=== PATIENT | female | born 1965 | race African-American/Black ===

== ENCOUNTER 2023-03-04 18:07 | Emergency (ER) | payer MEDICAID, OTHER ==
[~2023-03-04] VITALS: Ht 154.9 cm; Wt 80.0 kg
[2023-03-04 21:20] LABS: BASO % 0.8 % (0.0-1.0); EOS # 0.1 10^3/uL (0.0-0.5); EOS % 2.1 % (0.0-3.0); HEMATOCRIT 39.3 % (36.0-47.0); HEMOGLOBIN 12.5 g/dl (12.0-15.5); LYMPH # 1.3 10^3/uL (1.5-5.0); LYMPH % 23.8 % (24.0-44.0); MEAN CORPUSCULAR HEMOGLOBIN 28.3 pg (27.0-33.0); MEAN CORPUSCULAR HGB CONC 31.8 g/dl (32.0-36.5); MEAN CORPUSCULAR VOLUME 88.9 fl (80.0-96.0); MONO # 0.6 10^3/uL (0.0-0.8); MONO % 11.2 % (2.0-8.0); NEUTROPHILS # 3.3 10^3/uL (1.5-8.5); NEUTROPHILS % 61.7 % (36.0-66.0); PLATELET COUNT, AUTOMATED 267 10^3/uL (150-450); RED BLOOD COUNT 4.42 10^6/uL (4.00-5.40); WHITE BLOOD COUNT 5.3 10^3/uL (4.0-10.0)
[2023-03-04 21:31] LABS: INR 1.07; PROTHROMBIN TIME 13.6 SECONDS (12.5-14.5)
[2023-03-04 21:50] LABS: CPK CREATINE PHOSPHOKINASE 100 U/L (34-145)
[2023-03-04 21:51] LABS: ALBUMIN 3.8 G/DL (3.2-5.2); ALKALINE PHOSPHATASE 109 U/L (46-116); ALT/SGPT 20 U/L (7.0-40); AST/SGOT 16 U/L (<34); BILIRUBIN,DIRECT 0.2 MG/DL (<0.4); BILIRUBIN,TOTAL 0.5 MG/DL (0.3-1.2); BLOOD UREA NITROGEN 17 MG/DL (9-23); CALCIUM LEVEL 9.7 MG/DL (8.5-10.1); CARBON DIOXIDE LEVEL 27 MMOL/L (20-31); CHLORIDE LEVEL 106 MMOL/L (98-107); CREATININE FOR GFR 0.49 MG/DL (0.55-1.30); GLOMERULAR FILTRATION RATE > 60.0 (>51); GLUCOSE, FASTING 97 MG/DL (60-100); MAGNESIUM LEVEL 1.7 MG/DL (1.8-2.4); POTASSIUM SERUM 4.4 MMOL/L (3.5-5.1); SODIUM LEVEL 141 MMOL/L (136-145); TOTAL PROTEIN 7.5 G/DL (5.7-8.2)
[2023-03-04] MEDS ORDERED: NORV5TAB PO (22:33)
[2023-03-04] MEDS ORDERED: HYDR-3490 PO (22:33)
[2023-03-04 22:36] VITALS: BP 136/82; TEMP 98; O2SAT 100
[2023-03-05] MEDS ORDERED: ZOLO100T PO (00:58)
[2023-03-05] MEDS ORDERED: OMEP10CASR PO (00:58)
[2023-03-05] MEDS ORDERED: NADO20TA PO (00:58)
== END 2023-03-04 23:00 | disposition home or self-care (01) ==
LOC: M ED 18:07
DX: M17.0 Bilateral primary osteoarthritis of knee (principal); Z76.0 Encounter for issue of repeat prescription; I10 Essential (primary) hypertension

== ENCOUNTER 2023-05-18 12:25 | Emergency (ER) | payer OTHER ==
[~2023-05-18] VITALS: Ht 154.9 cm; Wt 80.5 kg
[~2023-05-18 12:25] MED LIST: HYDR-3490 PO; NADO20TA PO; NORV5TAB PO; OMEP10CASR PO; ZOLO100T PO
[2023-05-18] MEDS ORDERED: amLODIPine 5 MG TAB PO ONE (13:15)
[2023-05-18] MEDS ORDERED: HYDR-3490 PO (13:32)
[2023-05-18] MEDS ORDERED: AMLO1TAB24 PO (13:32)
[2023-05-18] MEDS ORDERED: OMEP10CASR PO (13:32)
[2023-05-18 14:33] VITALS: BP 144/83; TEMP 98; O2SAT 97
== END 2023-05-18 14:35 | disposition home or self-care (01) ==
LOC: M ED 12:25
DX: I10 Essential (primary) hypertension (principal); Z90.49 Acquired absence of other specified parts of digestive tract; Z85.3 Personal history of malignant neoplasm of breast; Z79.899 Other long term (current) drug therapy

== ENCOUNTER → 2023-06-06 | Outpatient (REF) | payer OTHER ==
[~2023-06-06] MED LIST changes: +AMLO1TAB24 PO
[2023-06-06 16:36] LABS: BASO % 0.5 % (0.0-1.0); EOS # 0.1 10^3/uL (0.0-0.5); EOS % 2.3 % (0.0-3.0); HEMATOCRIT 38.4 % (36.0-47.0); HEMOGLOBIN 12.6 g/dl (12.0-15.5); LYMPH # 1.9 10^3/uL (1.5-5.0); LYMPH % 30.5 % (24.0-44.0); MEAN CORPUSCULAR HEMOGLOBIN 28.4 pg (27.0-33.0); MEAN CORPUSCULAR HGB CONC 32.8 g/dl (32.0-36.5); MEAN CORPUSCULAR VOLUME 86.7 fl (80.0-96.0); MONO # 0.7 10^3/uL (0.0-0.8); MONO % 10.7 % (2.0-8.0); NEUTROPHILS # 3.4 10^3/uL (1.5-8.5); NEUTROPHILS % 55.7 % (36.0-66.0); PLATELET COUNT, AUTOMATED 286 10^3/uL (150-450); RED BLOOD COUNT 4.43 10^6/uL (4.00-5.40); WHITE BLOOD COUNT 6.1 10^3/uL (4.0-10.0)
[2023-06-06 17:00] LABS: ALBUMIN 3.8 G/DL (3.2-5.2); ALKALINE PHOSPHATASE 135 U/L (46-116); ALT/SGPT 40 U/L (7.0-40); AST/SGOT 47 U/L (<34); BILIRUBIN,TOTAL 0.2 MG/DL (0.3-1.2); BLOOD UREA NITROGEN 18 MG/DL (9-23); CALCIUM LEVEL 9.4 MG/DL (8.5-10.1); CARBON DIOXIDE LEVEL 32 MMOL/L (20-31); CHLORIDE LEVEL 97 MMOL/L (98-107); CHOLESTEROL LEVEL 185 MG/DL (<200); CHOLESTEROL RISK RATIO 2.98 (<5); CREATININE FOR GFR 0.64 MG/DL (0.55-1.30); GLOMERULAR FILTRATION RATE > 60.0 (>51); GLUCOSE, FASTING 100 MG/DL (60-100); HDL CHOLESTEROL 61.9 MG/DL (>40); LDL CHOLESTEROL 83.7 MG/DL (<100); MAGNESIUM LEVEL 1.6 MG/DL (1.8-2.4); NON-HDL-C 123.1 MG/DL; POTASSIUM SERUM 3.9 MMOL/L (3.5-5.1); SODIUM LEVEL 134 MMOL/L (136-145); TOTAL PROTEIN 7.7 G/DL (5.7-8.2); TRIGLYCERIDES LEVEL 197 MG/DL (<150)
[2023-06-06 17:02] LABS: HEMOGLOBIN A1c 5.6 % (4.0-6.0)
[2023-06-06 17:32] LABS: HIV 1&2 SCREEN NEGATIVE (NEGATIVE)
[2023-06-06 17:40] LABS: HEPATITIS C VIRUS ABY INDEX < 0.02 INDEX (<0.8)
== END ==
LOC: M LAB REF 16:00
PROVIDERS: ATTEND Nurse Practitioner Family
DX: E66.9 Obesity, unspecified (principal); Z11.4 Encounter for screening for human immunodeficiency virus [HIV]; Z11.59 Encounter for screening for other viral diseases

== ENCOUNTER → 2023-06-06 | Outpatient (REF) | payer OTHER | LOC: M LAB REF 15:54 | PROVIDERS: ATTEND Nurse Practitioner Family | DX: R39.9 Unspecified symptoms and signs involving the genitourinary system (principal) ==

== ENCOUNTER 2023-07-16 00:15 | Emergency (ER) | payer OTHER ==
[~2023-07-16] VITALS: Ht 154.9 cm; Wt 77.4 kg
[2023-07-16] MEDS ORDERED: TRAM50TA2 PO (04:33)
[2023-07-16] MEDS: traMADol 50 MG TAB PO ONE (04:58)
[2023-07-16 05:02] VITALS: BP 130/84; TEMP 97.7; O2SAT 97
== END 2023-07-16 05:14 | disposition home or self-care (01) ==
LOC: M ED 00:15
DX: S62.316A Displaced fracture of base of fifth metacarpal bone, right hand, initial encounter for closed fracture (principal); W19.XXXA Unspecified fall, initial encounter; Y92.410 Unspecified street and highway as the place of occurrence of the external cause; Y93.9 Activity, unspecified; Y99.9 Unspecified external cause status; I10 Essential (primary) hypertension; K21.9 Gastro-esophageal reflux disease without esophagitis; F32.A Depression, unspecified; Z79.899 Other long term (current) drug therapy

== ENCOUNTER → 2023-08-04 | Outpatient (CLI) | payer OTHER ==
[~2023-08-04] MED LIST changes: +TRAM50TA2 PO
== END ==
LOC: M SOG 13:35
PROVIDERS: ATTEND Physician Assistant
DX: S62.316A Displaced fracture of base of fifth metacarpal bone, right hand, initial encounter for closed fracture (principal); W18.30XA Fall on same level, unspecified, initial encounter; Y92.009 Unspecified place in unspecified non-institutional (private) residence as the place of occurrence of the external cause

== ENCOUNTER → 2023-08-17 | Outpatient (CLI) | payer OTHER | LOC: M WHC 10:48 | PROVIDERS: ATTEND Nurse Practitioner Family | DX: Z12.31 Encounter for screening mammogram for malignant neoplasm of breast (principal) ==

== ENCOUNTER → 2023-08-17 | Outpatient (CLI) | payer OTHER ==
[2023-08-17 16:14] LABS: HIV 1&2 SCREEN NEGATIVE (NEGATIVE)
[2023-08-17 16:21] LABS: HEPATITIS B CORE ANTIBODY IGM NEGATIVE (NEGATIVE)
[2023-08-17 16:22] LABS: HEPATITIS C VIRUS ABY INDEX < 0.02 INDEX (<0.8)
== END ==
LOC: M PLALAB 12:35
PROVIDERS: ATTEND Nurse Practitioner Family
DX: Z11.3 Encounter for screening for infections with a predominantly sexual mode of transmission (principal); Z12.4 Encounter for screening for malignant neoplasm of cervix; Z77.9 Other contact with and (suspected) exposures hazardous to health

== ENCOUNTER → 2023-09-06 | Outpatient (REF) | payer OTHER ==
[2023-09-06 19:37] LABS: ALKALINE PHOSPHATASE 127 U/L (46-116); ALT/SGPT 26 U/L (7.0-40); AST/SGOT 17 U/L (<34); BILIRUBIN,TOTAL 0.3 MG/DL (0.3-1.2); BLOOD UREA NITROGEN 26 MG/DL (9-23); CARBON DIOXIDE LEVEL 28 MMOL/L (20-31); CHLORIDE LEVEL 100 MMOL/L (98-107); CREATININE FOR GFR 0.65 MG/DL (0.55-1.30); GLOMERULAR FILTRATION RATE > 60.0 (>51); GLUCOSE, FASTING 94 MG/DL (60-100); MAGNESIUM LEVEL 1.6 MG/DL (1.8-2.4); SODIUM LEVEL 136 MMOL/L (136-145); TOTAL PROTEIN 7.4 G/DL (5.7-8.2)
== END ==
LOC: M LAB REF 16:43
PROVIDERS: ATTEND Nurse Practitioner Family
DX: E83.42 Hypomagnesemia (principal); F10.20 Alcohol dependence, uncomplicated

== ENCOUNTER → 2023-09-08 | Outpatient (CLI) | payer OTHER | LOC: M SOG 14:41 | PROVIDERS: ATTEND Physician Assistant | DX: S62.316D Displaced fracture of base of fifth metacarpal bone, right hand, subsequent encounter for fracture with routine healing (principal); Z53.9 Procedure and treatment not carried out, unspecified reason ==

== ENCOUNTER → 2023-09-08 | Outpatient (CLI) | payer OTHER | LOC: M SOG 12:55 | PROVIDERS: ATTEND Physician Assistant | DX: S62.316D Displaced fracture of base of fifth metacarpal bone, right hand, subsequent encounter for fracture with routine healing (principal) ==

== ENCOUNTER → 2023-09-09 | Outpatient (REF) | payer OTHER | LOC: M SFHCWAGY 16:54 | PROVIDERS: ATTEND Nurse Practitioner Family | DX: L72.0 Epidermal cyst (principal) ==

== ENCOUNTER 2024-03-06 07:02 | Emergency (ER) | payer OTHER ==
[~2024-03-06] VITALS: Ht 154.9 cm; Wt 76.3 kg
[2024-03-06 07:22] VITALS: TEMP 97.1
[2024-03-06 08:40] LABS: ALBUMIN 3.9 G/DL (3.2-5.2); ALKALINE PHOSPHATASE 103 U/L (35-104); ALT/SGPT 23 U/L (7.0-40); AST/SGOT 24 U/L (<34); BASO # 0.1 10^3/uL (0.0-0.2); BASO % 0.9 % (0.0-1.0); BILIRUBIN,DIRECT < 0.1 MG/DL (<0.4); BILIRUBIN,TOTAL 0.3 MG/DL (0.3-1.2); BLOOD UREA NITROGEN 17 MG/DL (9-23); CALCIUM LEVEL 9.4 MG/DL (8.5-10.1); CARBON DIOXIDE LEVEL 29 MMOL/L (20-31); CHLORIDE LEVEL 92 MMOL/L (98-107); CREATININE FOR GFR 0.56 MG/DL (0.55-1.30); EOS # 0.2 10^3/uL (0.0-0.5); GLOMERULAR FILTRATION RATE > 60.0 (>51); GLUCOSE, FASTING 97 MG/DL (60-100); HEMATOCRIT 35.4 % (36.0-47.0); HEMOGLOBIN 11.7 g/dl (12.0-15.5); LYMPH # 3.4 10^3/uL (1.5-5.0); LYMPH % 48.6 % (24.0-44.0); MEAN CORPUSCULAR HEMOGLOBIN 28.1 pg (27.0-33.0); MEAN CORPUSCULAR HGB CONC 33.1 g/dl (32.0-36.5); MEAN CORPUSCULAR VOLUME 85.1 fl (80.0-96.0); MONO # 0.7 10^3/uL (0.0-0.8); MONO % 10.1 % (2.0-8.0); NEUTROPHILS # 2.6 10^3/uL (1.5-8.5); NEUTROPHILS % 37.3 % (36.0-66.0); PLATELET COUNT, AUTOMATED 288 10^3/uL (150-450); POTASSIUM SERUM 3.9 MMOL/L (3.5-5.1); RED BLOOD COUNT 4.16 10^6/uL (4.00-5.40); SODIUM LEVEL 127 MMOL/L (136-145); TOTAL PROTEIN 7.8 G/DL (5.7-8.2); WHITE BLOOD COUNT 6.9 10^3/uL (4.0-10.0)
[2024-03-06 08:42] LABS: THYROID STIMULATING HORMONE 0.641 uIU/ML (0.55-4.78)
[2024-03-06 09:28] LABS: ETHYL ALCOHOL (ETHANOL) 0.348 % (0.000-0.010)
[2024-03-06 11:46] VITALS: BP 128/76; O2SAT 95
== END 2024-03-06 11:51 | disposition home or self-care (01) ==
LOC: EDBD 07:02 → M ED 07:02
DX: F10.120 Alcohol abuse with intoxication, uncomplicated (principal); E87.1 Hypo-osmolality and hyponatremia; I45.81 Long QT syndrome; J44.9 Chronic obstructive pulmonary disease, unspecified; K21.9 Gastro-esophageal reflux disease without esophagitis; I10 Essential (primary) hypertension; Z79.899 Other long term (current) drug therapy

== ENCOUNTER → 2024-05-08 | Outpatient (REF) | payer OTHER ==
[2024-05-08 19:14] LABS: ALBUMIN 3.9 G/DL (3.2-5.2); ALKALINE PHOSPHATASE 113 U/L (35-104); ALT/SGPT 26 U/L (7.0-40); AST/SGOT 19 U/L (<34); BILIRUBIN,TOTAL 0.4 MG/DL (0.3-1.2); BLOOD UREA NITROGEN 21 MG/DL (9-23); CARBON DIOXIDE LEVEL 30 MMOL/L (20-31); CHLORIDE LEVEL 102 MMOL/L (98-107); CHOLESTEROL LEVEL 232 MG/DL (<200); CHOLESTEROL RISK RATIO 3.17 (<5); CREATININE FOR GFR 0.54 MG/DL (0.55-1.30); GLOMERULAR FILTRATION RATE > 60.0 (>51); GLUCOSE, FASTING 97 MG/DL (60-100); MAGNESIUM LEVEL 1.6 MG/DL (1.8-2.4); POTASSIUM SERUM 4.2 MMOL/L (3.5-5.1); SODIUM LEVEL 142 MMOL/L (136-145); TOTAL PROTEIN 7.8 G/DL (5.7-8.2); TRIGLYCERIDES LEVEL 125 MG/DL (<150)
== END ==
LOC: M LAB REF 16:41
PROVIDERS: ATTEND Nurse Practitioner Family
DX: E66.9 Obesity, unspecified (principal)

== ENCOUNTER → 2024-07-19 | Outpatient (REF) | payer OTHER ==
[2024-07-19 15:54] LABS: BASO % 0.9 % (0.0-1.0); EOS # 0.2 10^3/uL (0.0-0.5); EOS % 3.4 % (0.0-3.0); HEMATOCRIT 37.6 % (36.0-47.0); HEMOGLOBIN 11.7 g/dl (12.0-15.5); LYMPH # 1.2 10^3/uL (1.5-5.0); LYMPH % 28.5 % (24.0-44.0); MEAN CORPUSCULAR HEMOGLOBIN 28.8 pg (27.0-33.0); MEAN CORPUSCULAR HGB CONC 31.1 g/dl (32.0-36.5); MEAN CORPUSCULAR VOLUME 92.6 fl (80.0-96.0); MONO # 0.5 10^3/uL (0.0-0.8); MONO % 11.5 % (2.0-8.0); NEUTROPHILS # 2.4 10^3/uL (1.5-8.5); NEUTROPHILS % 55.5 % (36.0-66.0); PLATELET COUNT, AUTOMATED 265 10^3/uL (150-450); RED BLOOD COUNT 4.06 10^6/uL (4.00-5.40); WHITE BLOOD COUNT 4.4 10^3/uL (4.0-10.0)
[2024-07-19 16:07] LABS: ALBUMIN 3.7 G/DL (3.2-5.2); ALKALINE PHOSPHATASE 123 U/L (35-104); ALT/SGPT 23 U/L (7.0-40); AST/SGOT 12 U/L (<34); BILIRUBIN,TOTAL 0.4 MG/DL (0.3-1.2); BLOOD UREA NITROGEN 18 MG/DL (9-23); CALCIUM LEVEL 9.5 MG/DL (8.5-10.1); CARBON DIOXIDE LEVEL 29 MMOL/L (20-31); CHLORIDE LEVEL 102 MMOL/L (98-107); CREATININE FOR GFR 0.49 MG/DL (0.55-1.30); FOLATE > 24.0 NG/ML (>5.4); GLOMERULAR FILTRATION RATE > 60.0 (>51); GLUCOSE, FASTING 109 MG/DL (60-100); POTASSIUM SERUM 3.5 MMOL/L (3.5-5.1); SODIUM LEVEL 142 MMOL/L (136-145); TOTAL PROTEIN 7.3 G/DL (5.7-8.2); VITAMIN B12 LEVEL 473 PG/ML (211-911)
== END ==
LOC: M LAB REF 15:13
PROVIDERS: ATTEND Nurse Practitioner Family
DX: E66.9 Obesity, unspecified (principal)

== ENCOUNTER → 2024-08-17 | Outpatient (CLI) | payer OTHER | LOC: M WHC 13:20 | PROVIDERS: ATTEND Nurse Practitioner Family | DX: Z12.31 Encounter for screening mammogram for malignant neoplasm of breast (principal); R92.313 Mammographic fatty tissue density, bilateral breasts ==

== ENCOUNTER → 2024-08-17 | Outpatient (CLI) | payer OTHER | LOC: M PLAIMG 14:02 | PROVIDERS: ATTEND Nurse Practitioner Family | DX: M25.572 Pain in left ankle and joints of left foot (principal); S82.432D Displaced oblique fracture of shaft of left fibula, subsequent encounter for closed fracture with routine healing ==

== ENCOUNTER → 2024-08-23 | Outpatient (CLI) | payer OTHER ==
[~2024-08-23] MED LIST changes: -NADO20TA PO; +NADO20TA38 PO
== END ==
LOC: M RAD 13:09
PROVIDERS: ATTEND Nurse Practitioner Family
DX: R91.1 Solitary pulmonary nodule (principal); Z87.891 Personal history of nicotine dependence

== ENCOUNTER → 2025-03-22 | Outpatient (REF) | payer OTHER ==
[~2025-03-22] MED LIST changes: +ACET-1515 PO; +B-1100TA2 PO; +D32000TA2 PO; +FLUT15.820 NARES; +FOLI1TAB11 PO; +KETO2CR TOP; +LORA-930 PO; +OMEP-173 PO; +RISP0.5T82 PO; +TREL1AER PO
[2025-03-27 14:17] LABS: HPV APTIMA Not Detected (Not Detected)
== END ==
LOC: M SFHCWAGY 10:08
PROVIDERS: ATTEND Physician Assistant
DX: Z01.419 Encounter for gynecological examination (general) (routine) without abnormal findings (principal); Z77.9 Other contact with and (suspected) exposures hazardous to health